=== PATIENT | male | born 1950 | race Caucasian/White ===

== ENCOUNTER 2018-09-10 12:24 | Emergency (ER) | payer OTHER, MEDICARE ==
--- NOTE | 2018-09-10 13:21 | ED ---
Lower Extremity - HPI Summary HPI Summary: 68 year old female presents with right pinky toe pain for the past couple days. He denies any known injury. He states he noticed some swelling and redness to his right big toe. He hasn't tried anything for his pain. States has family history of gout. He denies any personal history of gout. He does have a history of renal disease. He is not diabetic. No fevers. No spreading redness. No bug bite to the area. He is able to ambulate with pain. He did have a beer a day prior to the pain starting. - History of Current Complaint Chief Complaint: EDExtremityLower Stated Complaint: RIGHT FOOT INJURY Time Seen by Provider: 09/10/18 12:33 Pain Intensity: 4 - Allergies/Home Medications Allergies/Adverse Reactions: Allergies Allergy/AdvReac Type Severity Reaction Status Date / Time No Known Allergies Allergy Verified 09/10/18 12:30 PMH/Surg Hx/FS Hx/Imm Hx Endocrine/Hematology History: Denies: Hx Anticoagulant Therapy Cardiovascular History: Denies: Hx Myocardial Infarction Infectious Disease History: No Infectious Disease History: Denies: Traveled Outside the [place] in Last 30 Days - Family History Known Family History: Positive: Other - gout - Social History Alcohol Use: Occasionally Substance Use Type: Reports: None Smoking Status (MU): Unknown if Ever Smoked Review of Systems Negative: Fever Negative: Chest Pain Negative: Shortness Of Breath Positive: Myalgia - right foot pain All Other Systems Reviewed And Are Negative: Yes Physical Exam Triage Information Reviewed: Yes Vital Signs On Initial Exam: Initial Vitals Temp Pulse Resp BP Pulse Ox 97.6 F 99 16 191/98 98 09/10/18 12:26 09/10/18 12:26 09/10/18 12:26 09/10/18 12:26 09/10/18 12:26 Vital Signs Reviewed: Yes Appearance: Positive: Well-Appearing Skin: Positive: Warm, Dry Head/Face: Positive: Normal Head/Face Inspection Eyes: Positive: Normal, Conjunctiva Clear ENT: Positive: Pharynx normal Respiratory/Lung Sounds: Positive: Clear to Auscultation, Breath Sounds Present Cardiovascular: Positive: Normal, RRR Musculoskeletal: Positive: Other - erythema and edema to right MTP, tenderness right MTP, capillary refill<2secs Neurological: Positive: Normal Psychiatric: Positive: Normal Diagnostics - Vital Signs Vital Signs Temp Pulse Resp BP Pulse Ox 09/10/18 12:26 97.6 F 99 16 191/98 98 - Laboratory Lab Statement: Any lab studies that have been ordered have been reviewed, and results considered in the medical decision making process. - Radiology foot Radiology Interpretation Completed By: Radiologist Summary of Radiographic Findings: no fracture Lower Extremity Course/Dx - Course Course Of Treatment: 68 year old female presents with right pinky toe pain for the past couple days. He denies any known injury. He states he noticed some swelling and redness to his right big toe. He hasn't tried anything for his pain. States has family history of gout. He denies any personal history of gout. He does have a history of renal disease. He is not diabetic. No fevers. No spreading redness. No bug bite to the area. He is able to ambulate with pain. He did have a beer a day prior to the pain starting. On exam tenderness over right MTP. Edema and erythema present. X-ray shows no fracture. Discussed likely is gout. Since cannot take NSAIDs will prescribe prednisone. Patient understands agrees plan. - Diagnoses Differential Diagnosis/HQI/PQRI: Positive: Contusion, Fracture (Closed), Gout Provider Diagnoses: Pain of right great toe Discharge - Sign-Out/Discharge Documenting (check all that apply): Patient Departure - Discharge Plan Condition: Good Disposition: HOME Prescriptions: predniSONE TAB* [Deltasone 20 MG TAB*] 40 mg PO DAILY #16 tab Patient Education Materials: Gout (ED) Referrals: Dior Brewer MD [Primary Care Provider] - Additional Instructions: take prednisone two pills until symptoms get better, then drop to one pill for 2 days and then stop medication Follow up with primary ice, elevate Take tyenlol every 6 hours as needed for pain Return to ED if develop any new or worsening symptoms - Billing Disposition and Condition Condition: GOOD Disposition: Home
[2018-09-10] MEDS ORDERED: predniSONE TAB* 20 MG PO ONE (13:27)
[2018-09-10 13:49] VITALS: BP 178/88
== END 2018-09-10 13:48 | disposition home or self-care (01) ==
LOC: ED 12:24
DX: M79.674 Pain in right toe(s) (principal)
CPT/HCPCS: 99282; J7512